=== PATIENT | female | born 1955 | race Hispanic/Latino ===

== ENCOUNTER 2018-07-21 19:00 | Emergency (ER) | payer MEDICAID ==
[2018-07-21 19:04] VITALS: BMI 25.6
--- NOTE | 2018-07-21 19:09 | ED PDOC ---
Arrival/HPI - General Historian: Patient, EMS - History of Present Illness Narrative History of Present Illness (Text): 07/21/18 19:09 63 year old female, with past medical history of laryngeal CA s/p tracheostomy during July 01 admission at [facility], presents to the ED via EMS for evaluation of bleeding trachea since prior to arrival. Reportedly, patient developed a cough this morning after which she started bleeding actively. EMS reports approximately 500 cc of blood from the area and states patient had inner tube replaced by a visiting nurse earlier this morning. ROS limited secondary to patient's clinical condition. Time/Duration: Prior to Arrival Symptom Course: Unchanged Activities at Onset: Light Context: Home Past Medical History - Provider Review Nursing Documentation Reviewed: Yes Family/Social History - Physician Review Nursing Documentation Reviewed: Yes Family/Social History: No Known Family HX Allergies/Home Meds Allergies/Adverse Reactions: Allergies No Known Allergies Allergy (Verified 07/21/18 19:04) Review of Systems - Review of Systems Systems not reviewed;Unavailable: Acuity of Condition (bleeding trache) Respiratory: Cough Physical Exam - Physical Exam Narrative Physical Exam (Text): 07/21/18 19:19 Constitutional: No acute distress. Head: Normocephalic. Atraumatic. Eyes: PERRL. ENT: Moist mucous membranes. Neck: Bleeding noted from tracheostomy site. Cuffless tube in place. Cardiovascular: Tachycardic rate. Chest: No tenderness. Respiratory: Clear to auscultation bilaterally. GI: Soft. Nontender. Nondistended. Back: No CVA tenderness. Musculoskeletal: No tenderness or swelling of extremities. Skin: No rash. Neurologic: Alert, no focal deficit. Vital Signs Reviewed: Yes Temperature: Afebrile Blood Pressure: Normal Pulse: Tachycardic Respiratory Rate: Normal Appearance: Positive for: Well-Appearing, Non-Toxic Pain Distress: None Mental Status: Positive for: other (Alert) Medical Decision Making ED Course and Treatment: 07/21/18 19:18 Impression: 63 year old female presents to the ED for evaluation of bleeding tracheostomy site. Plan: -- Labs -- CT of Neck -- Surgical consult -- Reassess and disposition Prior Visits: Notes and results from previous visits were reviewed. Progress Notes: 07/21/18 19:39 resident care manager rn evaluated patient at bedside. Awaiting CT of neck for further plan of action. While patient in ED, patient's condition stable without alterations in HR or BP. Patient alert and interactive, conversing using mouthing and marker board. Dr. Marr [facility] at [facility] who performed tracheostomy contacted, recommends transfer to [facility] for further evaluation and treatment by him. In discussion with him, as patient without grossly active bleeding in ED, hold off on CT, may perform at [facility]. Transported via ALS. - Scribe Statement The provider has reviewed the documentation as recorded by the Scribe Wenceslao Hernandez All medical record entries made by the Scribe were at my direction and personally dictated by me. I have reviewed the chart and agree that the record accurately reflects my personal performance of the history, physical exam, medical decision making, and the department course for this patient. I have also personally directed, reviewed, and agree with the discharge instructions and disposition. Disposition/Present on Arrival - Present on Arrival Any Indicators Present on Arrival: No - Disposition Have Diagnosis and Disposition been Completed?: Yes Diagnosis: Tracheostomy hemorrhage Disposition: Transfer [facility] Disposition Time: 21:15 Patient Plan: Transfer To Condition: GUARDED Forms: [employer] (Kinyarwanda)
[2018-07-21 19:11] VITALS: TEMP 98.1
[2018-07-21 19:50] LABS: BASO # 0.03 K/mm3 (0.0-2.0); BASO % 0.4 % (0.0-3.0); EOS # 0.1 (0.0-0.7); EOS % 1.3 % (1.5-5.0); LYMPH # 1.2 (1.2-3.4); LYMPH % 14.6 % (22.0-35.0); MEAN CELL VOLUME 87.2 fl (80.0-105.0); MEAN CORPUSCULAR HEMOGLOBIN 28.7 pg (25.0-35.0); MEAN CORPUSCULAR HGB CONC 32.9 g/dl (31.0-37.0); MEAN PLATELET VOLUME 8.7 fl (7.0-11.0); MONO # 0.7 (0.1-0.6); MONO % 8.1 % (1.0-6.0); RBC 3.83 10^6/uL (3.5-6.1); RED CELL DISTRIBUTION WIDTH 13.9 % (11.5-14.5); WHITE BLOOD COUNT 8.3 10^3/uL (4.5-11.0)
[2018-07-21 19:53] LABS: ALB/GLOB RATIO 1.1 (1.1-1.8); ALBUMIN 4.1 g/dL (3.0-4.8); ALT/SGPT 28 U/L (7-56); AST/SGOT 31 U/L (14-36); BLOOD UREA NITROGEN 12 mg/dL (7-21); CALCIUM 9.9 mg/dL (8.4-10.5); GFR NON-AFRICAN AMERICAN > 60; INR 1.24; PARTIAL THROMBOPLASTIN TIME 36.9 Seconds (26.9-38.3); PROTHROMBIN TIME 13.8 SECONDS (9.4-12.5)
[2018-07-21] MEDS ORDERED: Iohexol 350 MG/100 ML VIAL ONE (20:05)
[2018-07-21 20:55] VITALS: BP 105/85; PULSE 126; RESP 18; O2SAT 99
== END 2018-07-21 21:11 | disposition short-term general hospital (02) ==
LOC: ED 19:00
DX: J95.01 Hemorrhage from tracheostomy stoma (principal)
CPT/HCPCS: 80053; 85025; 85610; 85730; 86850; 86900; 99283; Q9967